=== PATIENT | female | born 1970 | race African-American/Black ===

== ENCOUNTER 2023-07-07 14:16 | Outpatient (CLI) | payer OTHER | END 2023-07-07 14:17 | disposition home or self-care (01) | LOC: NAV RAD 14:16 | PROVIDERS: ATTEND Family Medicine | DX: M25.561 Pain in right knee (principal); M25.562 Pain in left knee; I50.9 Heart failure, unspecified; M17.0 Bilateral primary osteoarthritis of knee | CPT/HCPCS: 71046 ==